=== PATIENT | male | born 1945 | race Caucasian/White ===

== ENCOUNTER → 2020-09-06 10:27 | Outpatient (BNVA) | payer MEDICARE, SELFPAY | PROVIDERS: PCP Internal Medicine; Referring Provider Internal Medicine; Visit Provider Urology | DX: N52.9 Male erectile dysfunction, unspecified (principal); R97.20 Elevated prostate specific antigen [PSA]; N40.1 Benign prostatic hyperplasia with lower urinary tract symptoms; N13.8 Other obstructive and reflux uropathy | CPT/HCPCS: Q3014 ==

== ENCOUNTER 2021-03-01 13:56 | Outpatient (REF) | payer MEDICARE, SELFPAY ==
[2021-03-01 15:09] LABS: Prostate Specific Antigen 3.66 ng/mL (<0.05-4.0)
== END 2021-03-01 13:57 | disposition home or self-care (01) ==
LOC: HO.LAB 13:56
PROVIDERS: PCP Internal Medicine; Visit Provider Urology
DX: R97.20 Elevated prostate specific antigen [PSA] (principal); Z12.5 Encounter for screening for malignant neoplasm of prostate
CPT/HCPCS: 36415; 84153

== ENCOUNTER → 2021-03-06 14:06 | Outpatient (BNVA) | payer MEDICARE, SELFPAY | PROVIDERS: Visit Provider Urology | DX: Z13.89 Encounter for screening for other disorder (principal) | CPT/HCPCS: 99212 ==

== ENCOUNTER → 2021-09-11 08:41 | Outpatient (BNVA) | payer MEDICARE, SELFPAY | PROVIDERS: PCP Internal Medicine; Visit Provider Urology | DX: N40.1 Benign prostatic hyperplasia with lower urinary tract symptoms (principal); N13.8 Other obstructive and reflux uropathy; N52.9 Male erectile dysfunction, unspecified; R97.20 Elevated prostate specific antigen [PSA] | CPT/HCPCS: Q3014 ==

== ENCOUNTER → 2022-03-11 08:45 | Outpatient (BNVA) | payer MEDICARE, SELFPAY | PROVIDERS: PCP Internal Medicine; Visit Provider Urology | DX: N40.1 Benign prostatic hyperplasia with lower urinary tract symptoms (principal); N13.8 Other obstructive and reflux uropathy; N52.9 Male erectile dysfunction, unspecified; R97.20 Elevated prostate specific antigen [PSA] | CPT/HCPCS: Q3014 ==

== ENCOUNTER → 2022-09-16 10:59 | Outpatient (BNVA) | payer MEDICARE, SELFPAY | PROVIDERS: PCP Internal Medicine; Visit Provider Urology | DX: N52.9 Male erectile dysfunction, unspecified (principal); R97.20 Elevated prostate specific antigen [PSA] | CPT/HCPCS: Q3014 ==

== ENCOUNTER 2023-03-19 11:20 | Outpatient (AMB) | payer MEDICARE, SELFPAY ==
--- NOTE | 2023-03-19 11:41 | A.OFFVIS_ITS ---
Intake Intake Visit Reasons: 6M PSA(set) Intake Note: Patient presents for follow up PSA Urology Medications: finasteride, sildenafil Blood Thinner: none Door Operator Required: No Accompanied by: Self / Same As Patient Allergies No Known Allergies Allergy (Verified 03/19/23 11:42) HPI HPI Comments History of Present Illness Details Norm is a very pleasant male. He is a patient of Dr. Haro. He seen for the following urologic condition - lower urinary tract symptoms - elevated PSA - erectile dysfunction with diabetes Slight PSA rise with finasteride every other day - within acceptable limits - can take M/W/F Effective voiding parameters - nocturia x1, adequate stream, complete emptying, good urge control Continue to track every 6 months Elevated PSA/Abnormal JHONATAN: He presents for further evaluation of elevated PSA discussion of current results - 5-10% risk. Current management is medication with 5AR. Laboratory investigations include a total PSA evaluation May 2012 3.4, July 2015 4.4, December 2013 5.4, October 2014 6.7, November 2015 5.3, March 2016 4.8, October 2016 4.5, 04/17 5.4 08/18 [facility] Urine 35, 08/18 4.8 - is falling, 01/17 3.2, 08/19 2. 3, 02/18 3.6, 08/20 3.8 F25%, 02/19 3.1, 09/22 2.2, 02/20 2.6 Individualized Prostate Cancer Risk Calculator 5-10% high risk, Would like to continue with observation and understands and accepts the risks of a possible delay in diagnosis. Symptoms include incomplete emptying, weak stream, and are stable. Overall symptoms are mild. His prior IPSS was mild. Associated conditions diabetes Yes dyslipidemia No dysuria No erectile dysfunction Yes Therapeutic plan will be continued surveillance Erectile Dysfunction in setting of diabetes Good response to sildenafil PFSH Medical History Coronary artery disease Elevated PSA HTN (hypertension) Hyperlipidemia Surgical History History of surgery Social History Patient Tobacco Use Status: Former Tobacco user Review of Systems Const Denies chills and Denies fever(s) Card Reports no additional complaints and Denies syncope Resp Denies cough GI Denies abdominal pain and Denies heartburn Reports as per HPI and Denies change in libido Neuro Denies syncope Psych Denies change in libido Endo Denies change in libido Physical Exam Const General: cooperative, healthy appearing, comfortable and no acute distress Orientation/consciousness: patient oriented x3 HEENT Face and sinus: Yes normal facial exam Mouth: moist mucous membranes Neck Neck: Yes normal visual inspection, Yes full ROM and Yes trachea midline Chest Chest palpation & inspection: normal inspection of the chest Resp Effort & Inspection: normal respiratory effort, able to speak in complete sentences and no respiratory distress GI Inspection: Yes normal to inspection Back/Spine/Pelvis Cervical Spine: normal cervical lordosis Thoracic/Lumbar Spine: thoracic and lumbar spine normal to inspection Skin General skin exam: no rashes or lesions noted Neuro General: patient oriented x3, gait normal, tone normal and moves all extremities Extrem General: Yes normal to inspection and Yes capillary refill normal Assessment & Plan Assessment & Plan (1) Elevated PSA: Code(s): R97.20 - Elevated prostate specific antigen [PSA] (2) BPH w urinary obs/LUTS: Code(s): N40.1 - Benign prostatic hyperplasia with lower urinary tract symptoms; N13.8 - Other obstructive and reflux uropathy Plan Six month follow-up Orders: Orders Prostate Specific Antigen 6 Months R97.20 - Elevated prostate specific antigen [PSA] Patient Instructions: Imaging studies, laboratory and physical exam results were discussed and reviewed in detail. No major barriers to patient understanding were identified. An opportunity to ask questions regarding the treatment plan was provided. All questions were answered. The patient expressed understanding and agreement with the above treatment plan. The patient is aware they should contact our office by phone for worsening of their current condition or the appearance of new urologic symptoms. Compliance is encouraged with any medications and followup testing that is ordered. It is a privilege to participate in the urologic care of your patient. If you erazo ve any questions or concerns regarding treatment for the above conditions, or other urologic issues, please do not hesitate to contact me. The office telephone contact is [phone]. This note is constructed using voice recognition software. While every effort has been made to ensure accuracy space officer errors may have been included. Yours sincerely, Dr Ankur Delacruz MD, [facility] - Urology Providers of Expert, Compassionate Care for the Genitourinary System Coding Level of Care Code Est Pt Level 3 (72152) Diagnoses Elevated PSA R97.20 BPH w urinary obs/LUTS N40.1; N13.8
== END 2023-03-19 12:04 | disposition home or self-care (01) ==
PROVIDERS: Visit Provider Urology
DX: R97.20 Elevated prostate specific antigen [PSA] (principal); N40.1 Benign prostatic hyperplasia with lower urinary tract symptoms; N13.8 Other obstructive and reflux uropathy
CPT/HCPCS: 99213

== ENCOUNTER → 2023-03-19 11:20 | Outpatient (BNVA) | payer MEDICARE, SELFPAY | PROVIDERS: Visit Provider Urology | DX: N40.1 Benign prostatic hyperplasia with lower urinary tract symptoms (principal); N13.8 Other obstructive and reflux uropathy; R97.20 Elevated prostate specific antigen [PSA]; E11.69 Type 2 diabetes mellitus with other specified complication; N52.1 Erectile dysfunction due to diseases classified elsewhere | CPT/HCPCS: 99212 ==

== ENCOUNTER 2023-09-22 08:21 | Outpatient (AMB) | payer MEDICARE, SELFPAY ==
--- NOTE | 2023-09-22 08:22 | A.OFFVIS_ITS ---
Intake Intake Visit Reasons: 6M PSA(set) Intake Note: Patient is Present for Telephone Follow Up PSA Urology Med: Finasteride, Sildenafil Antibiotic Allergy: None Blood Thinner: None Allergies No Known Allergies Allergy (Verified 09/22/23 08:23) Medication List - Last Reconciled 09/22/23 by Ankur Delacruz MD atorvastatin 80 mg PO DAILY blood sugar diagnostic (FreeStyle Lite Strips) As directed finasteride 5 mg PO DAILY 90 days lisinopril 5 mg PO DAILY metformin 500 mg PO BID metoprolol succinate ER 25 mg PO DAILY metoprolol succinate ER 50 mg PO DAILY sildenafil 100 mg PO DAILY PRN 30 days HPI HPI Comments History of Present Illness Details Norm is a very pleasant male. He is a patient of Dr. Haro. He seen for the following urologic condition - lower urinary tract symptoms - elevated PSA - erectile dysfunction with diabetes Telemedicine Evaluation 15 min Consultation [employer] Chris Video attempted PSA remains stable with finasteride every other day - within acceptable limits - can take M/W/F Effective voiding parameters - nocturia x1, adequate stream, complete emptying, good urge control [place] some dizziness after use of sildenafil. Can try tadalafil. Prescription provided Continue to track every 6 months Elevated PSA/Abnormal JHONATAN: He presents for further evaluation of elevated PSA discussion of current results - 5-10% risk. Current management is medication with 5AR. Laboratory investigations include a total PSA evaluation May 2012 3.4, July 2015 4.4, December 2013 5.4, October 2014 6.7, November 2015 5.3, March 2016 4.8, October 2016 4.5, 04/17 5.4 08/18 [employer] Urine 35, 08/18 4.8 - is falling, 01/17 3.2, 08/19 2.3, 02/18 3.6, 08/20 3.8 F25%, 02/19 3.1, 09/22 2.2, 02/20 2.6, 09/23 2.2 Individualized Prostate Cancer Risk Calculator 5-10% high risk, Would like to continue with observation and understands and accepts the risks of a possible delay in diagnosis. Symptoms include incomplete emptying, weak stream, and are stable. Overall symptoms are mild. His prior IPSS was mild. Associated conditions diabetes Yes erectile dysfunction Yes Therapeutic plan will be continued surveillance Erectile Dysfunction in setting of diabetes Good response to sildenafil [facility] Medical History Coronary artery disease HTN (hypertension) Hyperlipidemia Elevated PSA Surgical History History of surgery Social History Patient Tobacco Use Status: Former Tobacco user Review of Systems Const All systems reviewed & are unremarkable except as noted in HPI and below Reports no additional complaints Resp Reports no additional complaints GI Reports no additional complaints Reports as per HPI Musc Reports no additional complaints Physical Exam Telemedicine evaluation Appropriate responses Regular breathing rate and rhythm HEENT Head: Yes normal to inspection Ears: hearing grossly normal bilaterally Eyes General: appearance normal, both eyes and all related structures Neck Neck: Yes normal visual inspection Chest Chest palpation & inspection: normal inspection of the chest Resp Effort & Inspection: normal respiratory effort and able to speak in complete sentences Assessment & Plan Assessment & Plan (1) BPH w urinary obs/LUTS: Code(s): N40.1 - Benign prostatic hyperplasia with lower urinary tract symptoms; N13.8 - Other obstructive and reflux uropathy (2) Elevated PSA: Code(s): R97.20 - Elevated prostate specific antigen [PSA] (3) Erectile dysfunction: Code(s): N52.9 - Male erectile dysfunction, unspecified Plan Six-month follow-up PSA and PVR Trial tadalafil Orders: Orders Prostate Specific Antigen 6 Months R97.20 - Elevated prostate specific antigen [PSA] Medications: New tadalafil On demand medication take 60 minutes before intended activity 20 mg PO ONCE 30 days PRN 30 tabs 0RF sexual activity N52.9 - Male erectile dysfunction, unspecified Refilled finasteride 5 mg PO DAILY 90 days 90 tabs 2RF Patient Instructions: Imaging studies, laboratory and physical exam results were discussed and reviewed in detail. No major barriers to patient understanding were identified. An opportunity to ask questions regarding the treatment plan was provided. All questions were answered. The patient expressed understanding and agreement with the above treatment plan. The patient is aware they should contact our office by phone for worsening of their current condition or the appearance of new urologic symptoms. Compliance is encouraged with any medications and followup testing that is ordered. It is a privilege to participate in the urologic care of your patient. If you have any questions or concerns regarding treatment for the above conditions, or other urologic issues, please do not hesitate to contact me. The office telephone contact is [phone]. This note is constructed using voice recognition software. While every effort has been made to ensure accuracy law firm consultant errors may have been included. Yours sincerely, Dr Ankur Delacruz MD, [facility] - Urology Providers of Expert, Compassionate Care for the Genitourinary System Telehealth Telehealth Location of provider rendering services: practice address Location of patient: address on file Patient Identification confirmed using: Name, : Yes Telehealth method: video Patient verbally consented to treatment: Yes Patient verbally consented to billing insurance company: Yes Patient informed of any privacy concerns related to visit: Yes Coding Level of Care Code Tele Est Pt Level 4 (11814) Diagnoses BPH w urinary obs/LUTS N40.1; N13.8 Elevated PSA R97.20 Erectile dysfunction N52.9
== END 2023-09-22 08:54 | disposition home or self-care (01) ==
LOC: HO.HUSH 08:21
PROVIDERS: PCP Internal Medicine; Visit Provider Urology
DX: N40.1 Benign prostatic hyperplasia with lower urinary tract symptoms (principal); N13.8 Other obstructive and reflux uropathy; R97.20 Elevated prostate specific antigen [PSA]; N52.9 Male erectile dysfunction, unspecified
CPT/HCPCS: 99213

== ENCOUNTER → 2023-09-22 08:21 | Outpatient (BNVA) | payer MEDICARE, SELFPAY | PROVIDERS: PCP Internal Medicine; Visit Provider Urology ==

== ENCOUNTER 2024-03-22 10:31 | Outpatient (AMB) | payer MEDICARE, SELFPAY ==
--- NOTE | 2024-03-22 10:53 | A.OFFVIS_ITS ---
Intake Visit Reasons: 6m/PSA/PVR/Med Review(set) Intake Note: Patient is Present for 6m Follow Up/ PSA/pvr/med review Urology Med: Finasteride, Sildenafil,tadalafil Antibiotic Allergy: None Blood Thinner: None Grinder Operator Automatic Required: No Allergies No Known Allergies Allergy (Verified 03/22/24 10:55) HPI Comments Details: Norm is a very pleasant male. He is a patient of Dr. Haro. He seen for the following urologic condition - lower urinary tract symptoms - elevated PSA - erectile dysfunction with diabetes Six-month follow-up Continues with finasteride every other day UA glucose 3+ Does not have current metformin refill Refill provided was waiting for refill from PCP Finasteride refilled PSA 3.9. Repeat in 6 months PSA remains stable with finasteride every other day - within acceptable limits - can take M/W/F Effective voiding parameters - nocturia x1, adequate stream, complete emptying, good urge control Elevated PSA/Abnormal JHONATAN: He presents for further evaluation of elevated PSA discussion of current results - 5-10% risk. Current management is medication with 5AR. Laboratory investigations include a total PSA evaluation May 2012 3.4, July 2015 4.4, December 2013 5.4, October 2014 6.7, November 2015 5.3, March 2016 4.8, October 2016 4.5, 04/17 5.4 08/18 [facility] Urine 35, 08/18 4.8 - is falling, 01/17 3.2, 08/19 2.3, 02/18 3.6, 08/20 3.8 F25%, 02/19 3.1, 09/22 2.2, 02/20 2.6, 09/23 2.2, 02/21 3.9 Individualized Prostate Cancer Risk Calculator 5-10% high risk, Would like to continue with observation and understands and accepts the risks of a possible delay in diagnosis. Symptoms include incomplete emptying, weak stream, and are stable. Overall symptoms are mild. His prior IPSS was mild. Associated conditions diabetes Yes erectile dysfunction Yes Therapeutic plan will be continued surveillance Erectile Dysfunction in setting of diabetes Prior Good response to sildenafil Given tadalafil prescription PFSH Medical History Coronary artery disease HTN (hypertension) Hyperlipidemia Elevated PSA Surgical History History of surgery Social History Patient Tobacco Use Status: Former Tobacco user Review of Systems Const Denies chills and Denies fever(s) Card Reports no additional complaints and Denies syncope Resp Denies cough GI Denies abdominal pain and Denies heartburn Reports as per HPI and Denies change in libido Neuro Denies syncope Psych Denies change in libido Endo Denies change in libido Physical Exam Const General: cooperative, healthy appearing, comfortable and no acute distress Orientation/consciousness: patient oriented x3 HEENT Face and sinus: Yes normal facial exam Mouth: moist mucous membranes Neck Neck: Yes normal visual inspection, Yes full ROM and Yes trachea midline Chest Chest palpation & inspection: normal inspection of the chest Resp Effort & Inspection: normal respiratory effort, able to speak in complete sentences and no respiratory distress GI Inspection: Yes normal to inspection Back/Spine/Pelvis Cervical Spine: normal cervical lordosis Thoracic/Lumbar Spine: thoracic and lumbar spine normal to inspection Skin General skin exam: no rashes or lesions noted Neuro General: patient oriented x3, gait normal, tone normal and moves all extremities Extrem General: Yes normal to inspection and Yes capillary refill normal Results AMB Urinalysis, Automated UA Leukoctes 0 Guero/uL Last Edit by INDER Modi on 03/22/24 11:19 UA Nitrite Negative Last Edit by INDER Modi on 03/22/24 11:19 UA Urobilinogen 0.2 mg/dL Last Edit by INDER Modi on 03/22/24 11:1 9 UA Protein 30 mg/dL Last Edit by INDER Modi on 03/22/24 11:19 UA pH 5.5 Last Edit by INDER Modi on 03/22/24 11:19 UA Blood 0 Wily/uL Last Edit by INDER Modi on 03/22/24 11:19 UA Specific [place] 1.020 Last Edit by INDER Modi on 03/22/24 11: 19 UA Ketone Negative Last Edit by INDER Modi on 03/22/24 11:19 UA Bilirubin 0 mg/dL Last Edit by INDER Modi on 03/22/24 11:19 UA Glucose 1000 mg/dL Last Edit by INDER Modi on 03/22/24 11:19 Assessment & Plan Assessment & Plan (1) Erectile dysfunction: Code(s): N52.9 - Male erectile dysfunction, unspecified Category: Medical (2) Elevated PSA: Code(s): R97.20 - Elevated prostate specific antigen [PSA] Category: Medical Plan Six-month follow-up PSA Orders: Orders PSA,Total (Free>4and<10) 6 Months R97.20 - Elevated prostate specific antigen [PSA] AMB Urinalysis Automated Today Z13.9 - Encounter for screening, unspecified Patient Instructions: Imaging studies, laboratory and physical exam results were discussed and reviewed in detail. No major barriers to patient understanding were identified. An opportunity to ask questions regarding the treatment plan was provided. All questions were answered. The patient expressed understanding and agreement with the above treatment plan. The patient is aware they should contact our office by phone for worsening of their current condition or the appearance of new urologic symptoms. Compliance is encouraged with any medications and followup testing that is ordered. It is a privilege to participate in the urologic care of your patient. If you have any questions or concerns regarding treatment for the above conditions, or other urologic issues, please do not hesitate to contact me. The office telephone contact is [phone]. This note is constructed using voice recognition software. While every effort has been made to ensure accuracy value stream leader errors may have been included. Yours sincerely, Dr Ankur Delacruz MD, [facility] - Urology Providers of Expert, Compassionate Care for the Genitourinary System Coding Level of Care Code Est Pt Level 3 (25277) Diagnoses Erectile dysfunction N52.9 Elevated PSA R97.20
== END 2024-03-22 11:41 | disposition home or self-care (01) ==
PROVIDERS: PCP Internal Medicine; Visit Provider Urology
DX: N52.9 Male erectile dysfunction, unspecified (principal); R97.20 Elevated prostate specific antigen [PSA]; Z13.9 Encounter for screening, unspecified
CPT/HCPCS: 99213

== ENCOUNTER → 2024-03-22 10:31 | Outpatient (BNVA) | payer MEDICARE, SELFPAY | PROVIDERS: PCP Internal Medicine; Visit Provider Urology | DX: N52.9 Male erectile dysfunction, unspecified (principal); R97.20 Elevated prostate specific antigen [PSA] | CPT/HCPCS: 81003; 99212 ==

== ENCOUNTER 2024-09-21 08:33 | Outpatient (AMB) | payer MEDICARE, SELFPAY ==
--- NOTE | 2024-09-21 08:40 | MHC.OFFVIS ---
Intake Visit Reasons: 6M PSA/PVR(set) Intake Note: Patient is present for 6M PSA/ PVR Urology Medication:SILDENAFIL,TADALAFIL,FINASTERIDE Antibiotic Allergy:NONE Blood Thinner:NONE Todays PVR:129ML'S Business Analyst Project Manager Required: No Allergies No Known Allergies Allergy (Verified 09/21/24 08:41) HPI Comments Details: Norm is a very pleasant male. He is a patient of Dr. Haro. He seen for the following urologic condition - lower urinary tract symptoms - elevated PSA - erectile dysfunction with diabetes Six-month follow-up PVR 130 cc Continues with finasteride every other day Prior UA glucose 3+, UA today no glucose seen PSA dropped to 2.7 from 3.9 PSA remains stable with finasteride daily Effective voiding parameters - nocturia x1, adequate stream, complete emptying, good urge control No longer using erectile medications Twelve month follow-up Elevated PSA/Abnormal JHONATAN: He presents for further evaluation of elevated PSA discussion of current results - 5-10% risk. Current management is medication with 5AR. Laboratory investigations include a total PSA evaluation May 2012 3.4, July 2015 4.4, December 2013 5.4, October 2014 6.7, November 2015 5.3, March 2016 4.8, October 2016 4.5, 04/17 5.4 08/18 [facility] Urine 35, 08/18 4.8 - is falling, 01/17 3.2, 08/19 2.3, 02/18 3.6, 08/20 3.8 F25%, 02/19 3.1, 09/22 2.2, 02/20 2.6, 09/23 2.2, 02/21 3.9, 09/24 2.7 Individualized Prostate Cancer Risk Calculator 5-10% high risk, Would like to continue with observation and understands and accepts the risks of a possible delay in diagnosis. Symptoms include incomplete emptying, weak stream, and are stable. Overall symptoms are mild. His prior IPSS was mild. Associated conditions diabetes Yes erectile dysfunction Yes Therapeutic plan will be continued surveillance Erectile Dysfunction in setting of diabetes Prior Good response to sildenafil p.r.n. Given tadalafil prescription PFSH Medical History Coronary artery disease HTN (hypertension) Hyperlipidemia Elevated PSA Surgical History History of surgery Social History Patient Tobacco Use Status: Former Tobacco user Review of Systems Const Denies chills and Denies fever(s) Card Reports no additional complaints and Denies syncope Resp Denies cough GI Denies abdominal pain and Denies heartburn Reports as per HPI and Denies change in libido Neuro Denies syncope Psych Denies change in libido Endo Denies change in libido Physical Exam Const General: cooperative, healthy appearing, comfortable and no acute distress Orientation/consciousness: patient oriented x3 HEENT Face and sinus: Yes normal facial exam Mouth: moist mucous membranes Neck Neck: Yes normal visual inspection, Yes full ROM and Yes trachea midline Chest Chest palpation & inspection: normal inspection of the chest Resp Effort & Inspection: normal respiratory effort, able to speak in complete sentences and no respiratory distress GI Inspection: Yes normal to inspection Back/Spine/Pelvis Cervical Spine: normal cervical lordosis Thoracic/Lumbar Spine: thoracic and lumbar spine normal to inspection Skin General skin exam: no rashes or lesions noted Neuro General: patient oriented x3, gait normal, tone normal and moves all extremities Extrem General: Yes normal to inspection and Yes capillary refill normal Office Procedures Post Void Residual Post Residual Void Post Void Residual (PVR): 129 [id number]-Alcr Void Residual by ultrasound Results AMB Urinalysis, Automated UA Leukoctes 0 Guero/uL Last Edit by INDER Modi on 09/21/24 08:56 UA Nitrite Negative Last Edit by INDER Modi on 09/21/24 08:56 UA Urobilinogen 0.2 mg/dL Last Edit by INDER Modi on 09/21/24 08:56 UA Protein 30 mg/dL Last Edit by INDER Modi on 09/21/24 08:56 UA pH 6.0 Last Edit by INDER Modi on 09/21/24 08:56 UA Blood 25 Wily/uL Last Edit by INDER Modi on 09/21/24 08:56 UA Specific [place] 1.020 Last Edit by INDER Modi on 09/21/24 08:56 UA Ketone Negative Last Edit by INDER Modi on 09/21/24 08:56 UA Bilirubin 0 mg/dL Last Edit by INDER Modi on 09/21/24 08:56 UA Glucose 0 mg/dL Last Edit by INDER Modi on 09/21/24 08:56 Results Reviewed Results Reviewed: Laboratory Last Values Urine pH (Auto) 6.0 09/21/24 08:56 Specific [place] (Auto) 1.020 09/21/24 08:56 Urine Protein (Auto) 30 mg/dL 09/21/24 08:56 Glucose (UA)(Auto) 0 mg/dL 09/21/24 08:56 Urine Ketones (Auto) Negative 09/21/24 08:56 Urine Blood (Auto) 25 Wily/uL 09/21/24 08:56 Urine Nitrite (Auto) Negative 09/21/24 08:56 Urine Bilirubin (Auto) 0 mg/dL 09/21/24 08:56 Urine Urobilinogen (Auto) 0.2 mg/dL 09/21/24 08:56 Leukocyte Esterase (Auto) 0 Guero/uL 09/21/24 08:56 Assessment & Plan Assessment & Plan (1) BPH w urinary obs/LUTS: Code(s): N40.1 - Benign prostatic hyperplasia with lower urinary tract symptoms; N13.8 - Other obstructive and reflux uropathy Category: Medical (2) Erectile dysfunction: Code(s): N52.9 - Male erectile dysfunction, unspecified Category: Medical (3) Elevated PSA: Code(s): R97.20 - Elevated prostate specific antigen [PSA] Category: Medical Plan Twelve month follow-up PVR and PSA office Orders: Orders AMB Urinalysis Automated Today Z13.9 - Encounter for screening, unspecified Medications: Refilled finasteride 5 mg PO DAILY 90 days 90 tabs 3RF Discontinued sildenafil administer 60 minutes before intended activity Discontinued Reason: Patient Completed Course 100 mg PO DAILY 30 days PRN 30 tabs 1RF sexual activity N52.9 - Male erectile dysfunction, unspecified tadalafil On demand medication take 60 minutes before intended activity Discontinued Reason: Patient Completed Course 20 mg PO ONCE 30 days PRN 30 tabs 0RF sexual activity N52.9 - Male erectile dysfunction, unspecified Patient Instructions: Imaging studies, laboratory and physical exam results were discussed and reviewed in detail. No major barriers to patient understanding were identified. An opportunity to ask questions regarding the treatment plan was provided. All questions were answered. The patient expressed understanding and agreement with the above treatment plan. The patient is aware they should contact our office by phone for worsening of their current condition or the appearance of new urologic symptoms. Compliance is encouraged with any medications and followup testing that is ordered. It is a privilege to participate in the urologic care of your patient. If you have any questions or concerns regarding treatment for the above conditions, or other urologic issues, please do not hesitate to contact me. The office telephone contact is [phone]. This note is constructed using voice recognition software. While every effort has been made to ensure accuracy regional sales coordinator errors may have been included. Yours sincerely, Dr Ankur Delacruz MD, [facility] - Urology Providers of Expert, Compassionate Care for the Genitourinary System Coding Level of Care Code Est Pt Level 3 (23357) Diagnoses BPH w urinary obs/LUTS N40.1; N13.8 Erectile dysfunction N52.9 Elevated PSA R97.20 CPT Codes Post Residual Void - PVR CPT Code: 68018-Sxsr Void Residual by ultrasound ([id number])
== END 2024-09-21 09:14 | disposition home or self-care (01) ==
PROVIDERS: PCP Internal Medicine; Visit Provider Urology
DX: N40.1 Benign prostatic hyperplasia with lower urinary tract symptoms (principal); N13.8 Other obstructive and reflux uropathy; N52.9 Male erectile dysfunction, unspecified; R97.20 Elevated prostate specific antigen [PSA]; Z13.9 Encounter for screening, unspecified
CPT/HCPCS: 99213

== ENCOUNTER → 2024-09-21 08:33 | Outpatient (BNVA) | payer MEDICARE, SELFPAY | PROVIDERS: PCP Internal Medicine; Visit Provider Urology | DX: N40.1 Benign prostatic hyperplasia with lower urinary tract symptoms (principal); N13.8 Other obstructive and reflux uropathy; N52.9 Male erectile dysfunction, unspecified; R97.20 Elevated prostate specific antigen [PSA]; E11.9 Type 2 diabetes mellitus without complications | CPT/HCPCS: 51798; 81003; 99212 ==